=== PATIENT | male | born 1940 | race Caucasian/White ===

== ENCOUNTER 2016-08-01 11:26 | Emergency (ER) | payer MEDICARE, MEDICAID ==
[~2016-08-01] VITALS: Ht 188 cm; Wt 79.4 kg
[~2016-08-01 11:26] MED LIST: ATOR20TA PO
[2016-08-01] MEDS ORDERED: DIAZEPAM 10 MG TABLET ONE (12:21)
[2016-08-01] MEDS ORDERED: IBUPROFEN 600 MG TABLET PO ONE ×2 (12:22→12:30)
[2016-08-01] MEDS ORDERED: DIAZEPAM 10 MG TABLET PO ONE (12:30)
[2016-08-01] MEDS ORDERED: HYDROCODONE/APAP 5/325MG 1 EACH TABLET ONE (13:18)
[2016-08-01] MEDS ORDERED: HYDROCODONE/APAP 5/325MG 1 EACH TABLET PO ONE (13:30)
[2016-08-01] MEDS ORDERED: MORPHINE SULFATE INJ 2 MG/ML DISP.SYRIN IV ONE (14:00)
[2016-08-01] MEDS ORDERED: MORPHINE SULFATE INJ 4 MG/ML DISP.SYRIN ONE (14:04)
[2016-08-01 17:37] VITALS: BP 134/72
== END 2016-08-01 17:37 | disposition home or self-care (01) ==
LOC: ER 11:28
DX: M54.2 Cervicalgia (principal); E78.00 Pure hypercholesterolemia, unspecified; Z90.89 Acquired absence of other organs; Z88.0 Allergy status to penicillin; Z90.79 Acquired absence of other genital organ(s)
CPT/HCPCS: 72125; 96374; 99284; A4606; J2270; Z7610

== ENCOUNTER 2016-12-28 13:19 | Emergency (ER) | payer MEDICAID, OTHER ==
[~2016-12-28] VITALS: Ht 172.7 cm; Wt 79.4 kg
[2016-12-28 13:25] VITALS: BP 136/81
--- NOTE | 2016-12-28 14:12 | NUR ---
PT TAKEN TO CT [facility]
== END 2016-12-28 15:22 | disposition home or self-care (01) ==
LOC: ER 13:21
DX: S43.101A Unspecified dislocation of right acromioclavicular joint, initial encounter (principal); E78.00 Pure hypercholesterolemia, unspecified; Z88.0 Allergy status to penicillin; Z90.89 Acquired absence of other organs; W01.0XXA Fall on same level from slipping, tripping and stumbling without subsequent striking against object, initial encounter; Y92.89 Other specified places as the place of occurrence of the external cause; Y93.89 Activity, other specified; Y99.8 Other external cause status
CPT/HCPCS: 73030; 73060; 99284; A4606; Z7610

== ENCOUNTER 2017-09-20 21:55 | Emergency (ER) | payer OTHER ==
[~2017-09-20] VITALS: Ht 188 cm; Wt 74.8 kg
--- NOTE | 2017-09-20 22:08 | NUR ---
PT AMBULATORY TO ER BED 3. PT BIB FAMILY C/O LACERATION TO L HAND 4TH DIGIT X 8 HRS AGO. VSS/RESP EVEN UNLABORED/NAD NOTED/SKIN WARM AND DRY/AFEBRILE/AOX4. AWAITING MD SHIRLEY.
--- NOTE | 2017-09-20 22:15 | NUR ---
EMT AT BEDSIDE FOR WOUND CARE.
--- NOTE | 2017-09-20 22:20 | NUR ---
AT BEDSIDE FOR EVAL.
[2017-09-20] MEDS ORDERED: TDAP [DIPH/PERTUSSIS/TET] 0.5 ML VIAL IM ONE ×2 (22:27→22:30)
[2017-09-20] MEDS ORDERED: GELATIN SPONGE,ABSORBABLE 1 SPONGE SPONGE TP ONE ×2 (22:41→23:00)
--- NOTE | 2017-09-20 22:45 | NUR ---
XRAY AT BEDSIDE.
[2017-09-20] MEDS ORDERED: BUPIVACAINE 0.5 % PF 150 MG/30 ML VIAL ONE (23:46)
--- NOTE | 2017-09-20 23:48 | NUR ---
LACERATION TRAY SETUP AT BEDSIDE FOR
[2017-09-20] MEDS ORDERED: LIDOCAINE /MPF 1% VIAL 5 ML VIAL ONE (23:59)
--- NOTE | 2017-09-21 00:04 | NUR ---
AT BEDSIDE FOR SUTURE.
[2017-09-21] MEDS ORDERED: LORAZEPAM INJ 2 MG/ML VIAL ONE (00:28)
--- NOTE | 2017-09-21 00:30 | NUR ---
ATIVAN 0.5MG IM GIVEN ON THE RIGHT DELTOID PER DR GARCIA'S VERBAL ORDERS.
[2017-09-21] MEDS ORDERED: CIPROFLOXACIN HCL 500 MG TABLET PO ONE (01:30)
[2017-09-21] MEDS ORDERED: CIPROFLOXACIN HCL 500 MG TABLET ONE (01:31)
--- NOTE | 2017-09-21 01:39 | NUR ---
EMT AT BEDSIDE FOR DRESSING TO L 4TH DIGIT.
--- NOTE | 2017-09-21 01:45 | NUR ---
Patient discharged to home in stable condition. Written and verbal after care instructions given. Patient verbalizes understanding of instruction. Patient ambulatory with a steady gait.
[2017-09-21 01:47] VITALS: BP 146/85
[2017-09-21] MEDS ORDERED: LORAZEPAM INJ 2 MG/ML VIAL IM ONE (02:00)
== END 2017-09-21 01:48 | disposition home or self-care (01) ==
LOC: ER 21:56
DX: S61.215A Laceration without foreign body of left ring finger without damage to nail, initial encounter (principal); F41.9 Anxiety disorder, unspecified; E78.00 Pure hypercholesterolemia, unspecified; Z88.0 Allergy status to penicillin; Z90.89 Acquired absence of other organs; W26.8XXA Contact with other sharp object(s), not elsewhere classified, initial encounter; Y93.89 Activity, other specified; Y92.89 Other specified places as the place of occurrence of the external cause; Y99.8 Other external cause status
CPT/HCPCS: 73120-TC; 90715; A4606; A6402; A6403; J2060; J3490; Z7610

== ENCOUNTER 2019-03-15 10:29 | Emergency (ER) | payer OTHER ==
[~2019-03-15] VITALS: Ht 188 cm; Wt 73.5 kg
--- NOTE | 2019-03-15 10:35 | NUR ---
CAME IN FOR WEAKNESS, DEPRESSED X 2 WEEKS "IM IN A LOT OF STRESS LATELY." TO ER BED 12, HOOKED TO MONITOR, CHANGED TO GOWN, PROVIDED W WARM BLANKET, DR PATEL AT BEDSIDE
[2019-03-15 11:06] LABS: BASOPHILS % (AUTO) 0.3 % (0.0-2.0); EOSINOPHILS % (AUTO) 1.5 % (0.0-6.0); HEMATOCRIT 46 % (39-51); HEMOGLOBIN 15.7 g/dL (13.5-17.5); LYMPHOCYTES # (AUTO) 0.9 /CMM (0.8-4.8); LYMPHOCYTES % (AUTO) 16.5 % (20.0-44.0); MEAN CORPUSCULAR HGB CONC 34 g/dl (31.0-36.0); MEAN CORPUSCULAR VOLUME 89 fL (80-96); MONOCYTES # (AUTO) 0.4 /CMM (0.1-1.30); MONOCYTES % (AUTO) 7.8 % (2.0-12.0); NEUTROPHILS # (AUTO) 4.1 /CMM (1.8-8.9); NEUTROPHILS % (AUTO) 73.9 % (43.0-81.0); PLATELET COUNT (AUTO) 184 /CMM (150-450); RED BLOOD CELL COUNT(AUTO) 5.14 MIL/uL (4.5-6.0); WHITE BLOOD COUNT (AUTO) 5.6 K/uL (4.3-11.0)
[2019-03-15 11:19] LABS: CARBON DIOXIDE 32 mmol/L (21-32); CHLORIDE 105 mmol/L (98-107); CREATININE 0.8 mg/dL (0.6-1.3); GLUCOSE 98 mg/dL (74-106); POTASSIUM 4.3 mmol/L (3.5-5.1); SODIUM SERUM 142 mmol/L (136-145); UREA NITROGEN, BLOOD 10 mg/dL (7-18)
--- NOTE | 2019-03-15 11:20 | NUR ---
PROVIDED PT WITH WATER. ZABRINA SILVA MD
[2019-03-15 11:24] LABS: ALANINE AMINOTRANSFERASE 20 U/L (12-78); ALBUMIN 3.6 g/dL (3.4-5.0); ALKALINE PHOSPHATASE 52 U/L (46-116); ASPARTATE AMINOTRANSFERASE 16 U/L (15-37); BILIRUBIN,DIRECT 0.2 mg/dL (0.0-0.2); BILIRUBIN,TOTAL 0.8 mg/dL (0.2-1.0); CALCIUM, SERUM 9.3 mg/dL (8.5-10.1); TOTAL PROTEIN, SERUM 6.6 g/dL (6.4-8.2)
--- NOTE | 2019-03-15 11:46 | NUR ---
Patient discharged to home in stable condition. Written and verbal after care instructions given. Patient verbalizes understanding of instruction.
[2019-03-15 11:47] VITALS: BP 147/97
== END 2019-03-15 11:48 | disposition home or self-care (01) ==
LOC: ER 10:31
DX: F41.9 Anxiety disorder, unspecified (principal); F32.9 Major depressive disorder, single episode, unspecified; E78.00 Pure hypercholesterolemia, unspecified; Z90.89 Acquired absence of other organs; Z98.890 Other specified postprocedural states; Z88.0 Allergy status to penicillin
CPT/HCPCS: 36415; 71045-TC; 80048-TC; 80076-TC; 84484-TC; 85025-TC